=== PATIENT | male | born 1955 | race Caucasian/White ===

== ENCOUNTER → 2022-04-19 | Outpatient (CLI) | payer OTHER ==
[~2022-04-19] MED LIST: CLOP75 PO; HYDACE5 PO; IRBHYD150 PO; METO50ER PO; MOTION RELIEF25 MG PO
== END | disposition home or self-care (01) ==
LOC: LAB SHORT 12:32 → LAB 12:32
DX: N39.0 Urinary tract infection, site not specified (principal)
CPT/HCPCS: 87077; 87086; 87186

== ENCOUNTER 2024-12-29 05:48 | Day surgery (SDC) | payer OTHER ==
[2024-12-29] VITALS (13 sets, daily range): BP systolic 100–136; BP diastolic 70–87
[~2024-12-29] VITALS: Ht 167.6 cm; Wt 72.2 kg
[~2024-12-29 05:48] MED LIST changes: +AMLO10 PO; +LOSARTAN POTAS100 MG PO; +METO50 PO; +NAPR220 PO; +OMEP20ER PO; +PREVAGEN PO
[2024-12-29] MEDS ORDERED: Lipitor10 MG PO (06:17)
[2024-12-29] MEDS ORDERED: CeFAZolin Sodium 2,000 MG in NS 100 ML IV SCH (06:25)
[2024-12-29] MEDS ORDERED: Lactated Ringer's 1,000 ML IV SCH (06:25)
[2024-12-29] MEDS ORDERED: Dexamethasone Sod Phos 10 MG/ML 1ML VIAL ONE (06:29)
[2024-12-29] MEDS ORDERED: Ondansetron HCl 2 MG / ML 2ML Vial ONE (06:29)
[2024-12-29] MEDS ORDERED: Ketorolac Tromethamine 30mg Vial ONE (06:29)
[2024-12-29] MEDS ORDERED: Rocuronium Bromide 10 MG/ML 5ML Injection IV ONE (06:29)
[2024-12-29] MEDS ORDERED: FentaNYL Citrate 50 MCG/ML 5 ML Injection ONE (06:30)
[2024-12-29] MEDS ORDERED: propofoL 20 ML IV ONE (06:30)
[2024-12-29] MEDS ORDERED: CeFAZolin Sodium 2,000 MG VIAL ONE (06:46)
--- NOTE | 2024-12-29 07:01 | NUR ---
PATIENT AMBULATED FROM LOBBY TO DAY SURGERY WITH NO ASSIST, GAIT STEADY. PATIENT COMMUNICATES VERBALLY WITH SOME APHASIA NOTED. PATIENT STATES STROKE MORE THAN 15 YEARS AGO. PATIENT ACCOMPANIED BY , GERALD.
[2024-12-29] MEDS ORDERED: Bupivacaine 0.25% Epi 1:200000 30 ML Vial ONE (07:04)
[2024-12-29] MEDS ORDERED: ePHEDrine Sulfate 50 MG/ML 1ML Injection IV PRN (09:35)
[2024-12-29] MEDS ORDERED: FentaNYL Citrate 50 MCG/ML 2 ML Injection IV PRN (09:35)
[2024-12-29] MEDS ORDERED: Sugammadex Sodium 200 MG/2ML SDV (100 MG/ML) ONE (09:37)
[2024-12-29] MEDS ORDERED: Atropine Sulfate 0.1 MG/ML 10ML SYR IV PRN (09:40)
[2024-12-29] MEDS ORDERED: Ondansetron HCl 2 MG / ML 2ML Vial IV PRN (09:40)
[2024-12-29] MEDS ORDERED: Droperidol 5 mg/2 ml Vial IV PRN (09:40)
[2024-12-29] MEDS ORDERED: HYDROmorphone HCl/Pf 1MG SYR IV PRN ×2 (09:40→09:45)
[2024-12-29] MEDS ORDERED: Metoclopramide HCl 5MG / ML 2ML Vial IV PRN (09:40)
[2024-12-29] MEDS ORDERED: Labetalol HCL 5 MG/ML 4ML Injection (Single Dose) IV PRN (09:45)
[2024-12-29] MEDS ORDERED: Albuterol 2.5 MG/3 ML VIAL INH PRN (09:45)
[2024-12-29] MEDS ORDERED: Ketorolac Tromethamine 30mg Vial IV PRN (09:50)
--- NOTE | 2024-12-29 10:18 | NUR ---
OR CIRC RN CONSULTED ABOUT SKIN COLOR CHANGE, STATES IT IS NORMAL DUE TO EPI INJECTION AT END OF CASE
[2024-12-29] MEDS ORDERED: HYDROcodone 5-APAP 325 TAB PO PRN (10:35)
--- NOTE | 2024-12-29 11:26 | NUR ---
1035: TO STEP POST HERNIA REPAIR. ABDOMINAL INCISIONS CDI, CLOSED WITH SURGICAL GLUE. DENIES PAIN, NAUSEA, SOB. ENC TO COUGH/DB. ICE THERAPY PROVIDED. ABD BINDER PROVIDED FOR COMFORT IF NEEDED. BRINA PO WELL. DECLINES SNACK AT THIS TIME. DECLINES PO PAIN MEDS AT THIS TIME. ENC PT/FAMILY TO RESUME ALL HOME/PAIN MEDS ORDERED. DC'D VIA WC TO PRIVATE CAR WITH METER READER INSPECTOR.
== END 2024-12-29 23:00 | disposition home or self-care (01) ==
LOC: ORSCMMR 05:48 → ORD 07:30 → ORSCMMR 23:00
PROVIDERS: Surgery
PROC: 8E0W4CZ Robotic Assisted Procedure of Trunk Region, Percutaneous Endoscopic Approach (ICD-10-PCS; principal; 2024-12-29 07:30)
PROC: 0YUA4JZ Supplement Bilateral Inguinal Region with Synthetic Substitute, Percutaneous Endoscopic Approach (ICD-10-PCS; principal; 2024-12-29 07:30)
DX: K40.91 Unilateral inguinal hernia, without obstruction or gangrene, recurrent (principal); K40.90 Unilateral inguinal hernia, without obstruction or gangrene, not specified as recurrent; I10 Essential (primary) hypertension; E78.5 Hyperlipidemia, unspecified; F17.210 Nicotine dependence, cigarettes, uncomplicated; K21.9 Gastro-esophageal reflux disease without esophagitis; Z86.73 Personal history of transient ischemic attack (TIA), and cerebral infarction without residual deficits; Z79.899 Other long term (current) drug therapy
CPT/HCPCS: C1781; J0690; J1100; J1885; J2405; J2704; J3010; J7120